=== PATIENT | female | born 1970 | race American Indian/Alaskan Native ===

== ENCOUNTER 2020-05-05 15:28 | Emergency (ER) | payer SELFPAY ==
--- NOTE | 2020-05-05 15:40 | Event Note ---
ED Screening Note ED Screening Note: Patient is a 50-year-old female who comes to the ER complaining of left-sided facial numbness after having an elevated blood pressure today. She took her blood pressure medicine but states that it has remained high. Endorses intermittent chest pain and some shortness of breath with activity. Patient is ambulatory to the ER with no focal neuro deficit. There is no facial weakness or drooping. Pupils equal reactive. No dysphagia. No dysphasia. This initial assessment/diagnostic orders/clinical plan/treatment(s) is/are subject to change based on patients health status, clinical progression and re- assessment by fellow clinical providers in the ED. Further treatment and workup at subsequent clinical providers discretion. Patient/guardian urged not to elope from the ED as their condition may be serious if not clinically assessed and managed. Initial orders include: Hypertension-urgency versus emergency.
--- NOTE | 2020-05-05 16:13 | Cat Scan Report ---
. CT head/brain wo con INDICATION / CLINICAL INFORMATION: 50 years Female; facial numbness. TECHNIQUE: Routine CT head without contrast. All CT scans at this location are performed using CT dos e reduction for ALARA by means of automated exposure control. COMPARISON: None. FINDINGS: BRAIN / INTRACRANIAL CONTENTS: No acute hemorrhage, mass effect, midline shift, hydrocephalus, or acu te, large territorial infarct. No signs of significant atrophy or chronic infarct. No significant whi te matter abnormality seen. CRANIOCERVICAL JUNCTION: No significant abnormality. ORBITS: No significant abnormality of visualized orbits. SINUSES / MASTOIDS: No significant abnormality in the visualized paranasal sinuses or mastoid air lashonda ls. ADDITIONAL FINDINGS: None. IMPRESSION: 1. No focal mass, hemorrhage, hydrocephalus, or acute, large territorial infarct. Signer Name: Howard Pearson MD, III Signed: 05/05/2020 4:09 PM Workstation Name: [id number]
--- NOTE | 2020-05-05 16:26 | XRay Report ---
CHEST 2 VIEWS INDICATION: Chest Pain. COMPARISON: None FINDINGS: Support devices: None. Heart: Within normal limits. Lungs/pleura: No acute air space or interstitial disease. No pneumothorax. Additional findings: None. IMPRESSION: No acute findings. Normal chest x-ray. Signer Name: Nelson Jimenez Jr, MD Signed: 05/05/2020 4:21 PM Workstation Name: [id number]
[2020-05-05 16:27] LABS: Basophils # (Auto) 0.1 K/mm3 (0.0-0.1); Basophils % (Auto) 1.3 % (0.0-1.8); Eosinophils # (Auto) 0.1 K/mm3 (0.0-0.4); Hematocrit 39.9 % (30.3-42.9); Hemoglobin 13.5 gm/dl (10.1-14.3); Lymphocytes # (Auto) 1.8 K/mm3 (1.2-5.4); Lymphocytes % (Auto) 41.6 % (13.4-35.0); Mean Corpuscular HGB Conc 34 % (30-34); Mean Corpuscular Volume 94 fl (79-97); Monocytes # (Auto) 0.6 K/mm3 (0.0-0.8); Monocytes % (Auto) 13.4 % (0.0-7.3); Platelet Count 233 K/mm3 (140-440); Red Blood Count 4.25 M/mm3 (3.65-5.03); Red Cell Distribution Width 14.1 % (13.2-15.2)
[2020-05-05 16:50] LABS: Alanine Aminotransferase 36 units/L (7-56); BUN/Creatinine Ratio 21; Blood Urea Nitrogen 17 mg/dL (7-17); Calcium 8.9 mg/dL (8.4-10.2); Hemolysis Index 0
[2020-05-05] MEDS ORDERED: FAMOTIDINE 20 MG TAB PO ONE (21:09)
[2020-05-05] MEDS ORDERED: ALUM-MAG HYDROXIDE-SIMETHICONE 200-200-20MG/5ML ORAL LIQD 30 ML PO ONE (21:09)
[2020-05-05] MEDS ORDERED: LIDOCAINE VISCOUS 2% 15 ML ORAL LIQD PO ONE (21:09)
[2020-05-05 22:46] VITALS: BP 142/89
--- NOTE | 2020-05-05 22:55 | Emergency Department Report ---
ED General Adult HPI - General Chief complaint: High BP Stated complaint: NUMB/NO BP MOVEMENT Time Seen by Provider: 05/05/20 15:37 Source: patient Mode of arrival: Ambulatory Limitations: No Limitations - History of Present Illness Initial comments: Patient is a 50-year-old -[place] female with a history of hypertension and GERD presents to the ED with complaint of acute onset persistent elevated blood pressure for the last 12 hours despite taking her blood pressure medications. Patient states that she also experienced facial tingling and numbness and chest pressure and was scared and decided come to the ED for evaluation. Patient also states that she has been experiencing persistent diffuse abdominal bloating since the onset of the symptoms 12 hours ago. Patient states that she has not had a bowel movement in 24 hours. Patient de nies chest pain, shortness of breath, fever, chills, nausea and vomiting, diarrhea, dysuria, cough, palpitations, change in vision, headache or syncope. MD Complaint: Elevated BP; Bloated, chest pressure; facial numbness and tingling -: Sudden, hour(s) (12) Location: head, face, chest, abdomen Radiation: non-radiation Severity scale (0 -10): 0 Consistency: constant Improves with: none Worsens with: none Associated Symptoms: denies other symptoms. denies: confusion, chest pain, cough, diaphoresis, fever/chills, headaches, loss of appetite, malaise, nausea/vomiting, rash, seizure, shortness of breath, syncope, weakness, other Treatments Prior to Arrival: none - Related Data Previous Rx's Medication Instructions Recorded Last Taken Type Esomeprazole Magnesium [NexIUM] 40 mg PO QDAY #30 capsule.dr 05/05/20 Unknown Rx Famotidine [Pepcid] 20 mg PO BID #60 tablet 05/05/20 Unknown Rx amLODIPine 5 mg PO DAILY #30 tab 05/05/20 Unknown Rx Allergies Allergy/AdvReac Type Severity Reaction Status Date / Time No Known Allergies Allergy Unverified 05/05/20 15:36 ED Review of Systems ROS: Stated complaint: NUMB/NO BP MOVEMENT Other details as noted in HPI Constitutional: denies: chills, fever, malaise, weakness Eyes: denies: eye pain, eye discharge, vision change ENT: other (Facial tingling and numbness). denies: ear pain, throat pain Respiratory: other (Chest pressure). denies: cough, shortness of breath, wheezing Cardiovascular: denies: chest pain, palpitations, dyspnea on exertion, syncope, paroxysmal nocturnal dyspnea Endocrine: no symptoms reported Gastrointestinal: denies: abdominal pain, nausea, vomiting, diarrhea Genitourinary: denies: urgency, dysuria, discharge Musculoskeletal: denies: back pain, joint swelling, arthralgia Skin: denies: rash, lesions Neurological: denies: headache, weakness, paresthesias Psychiatric: denies: anxiety, depression Hematological/Lymphatic: denies: easy bleeding, easy bruising ED Past Medical Hx - Past Medical History Hx Hypertension: Yes Hx GERD: Yes - Surgical History Additional Surgical History: KNEE - Social History Smoking Status: Never Smoker Substance Use Type: Alcohol - Medications Home Medications: Home Medications Medication Instructions Recorded Confirmed Last Taken Type Esomeprazole Magnesium [NexIUM] 40 mg PO QDAY #30 capsule.dr 05/05/20 Unknown Rx Famotidine [Pepcid] 20 mg PO BID #60 tablet 05/05/20 Unknown Rx amLODIPine 5 mg PO DAILY #30 tab 05/05/20 Unknown Rx ED Physical Exam - General Limitations: No Limitations General appearance: alert, in no apparent distress - Head Head exam: Present: atraumatic, normocephalic, normal inspection - Eye Eye exam: Present: normal appearance, PERRL, EOMI Pupils: Present: normal accommodation - ENT ENT exam: Present: normal exam, normal orophraynx, mucous membranes moist, TM's normal bilaterally, normal external ear exam - Neck Neck exam: Present: normal inspection, full ROM - Respiratory Respiratory exam: Present: normal lung sounds bilaterally. Absent: respiratory distress, wheezes, rales, rhonchi, chest wall tenderness, prolonged expiratory - Cardiovascular Cardiovascular Exam: Present: regular rate, normal rhythm. Absent: systolic murmur, diastolic murmur, rubs, gallop - GI/Abdominal GI/Abdominal exam: Present: soft, normal bowel sounds. Absent: distended, tenderness, guarding, rebound, hyperactive bowel sounds, hypoactive bowel sounds, organomegaly - Extremities Exam Extremities exam: Present: normal inspection, full ROM, normal capillary refill - Back Exam Back exam: Present: normal inspection, full ROM. Absent: tenderness, CVA tenderness (R), CVA tenderness (L), muscle spasm, paraspinal tenderness, vertebral tenderness - Neurological Exam Neurological exam: Present: alert, oriented X3, CN II-XII intact, normal gait, reflexes normal - Psychiatric Psychiatric exam: Present: normal affect, normal mood, anxious - Skin Skin exam: Present: warm, dry, intact, normal color. Absent: rash ED Course Vital Signs 05/05/20 05/05/20 15:38 22:45 Temperature 98.2 F 98.0 F Pulse Rate 88 81 Respiratory 18 16 Rate Blood Pressure 151/92 Blood Pressure 142/89 [Left] O2 Sat by Pulse 96 98 Oximetry ED Medical Decision Making - Lab Data Result diagrams: 05/05/20 15:51 05/05/20 15:51 - EKG Data EKG shows normal: sinus rhythm Rate: normal - EKG Data Interpretation: normal EKG 05/06/20 01:35 EKG shows normal sinus rhythm with a ventricular rate of [address] or T wave abnormalities or pathological Q waves. - Radiology Data Radiology results: report reviewed, image reviewed Head CT scan without contrast showed no acute intracranial abnormalities or hemorrhage. Chest x-ray shows no acute cardiopulmonary abnormalities or pneumonitis - Medical Decision Making This is a 50-year-old -[place] female with a history of hypertension and GERD presents to the ED with complaint of acute onset persistent elevated blood pressure for the last 12 hours despite taking her blood pressure medications. Patient states that she also experienced facial tingling and numbness and chest pressure and was scared and decided come to the ED for evaluation. Patient also states that she has been experiencing persistent diffuse abdominal bloating since the onset of the symptoms 12 hours ago. Patient states that she has not had a bowel movement in 24 hours. Patient states that she take blood pressure medications losartan 100 mg-HCTZ 12.5 mg daily but believes that her blood pr essures not well controlled. Patient states that the blood pressure as measured at home was 180/114. Patient was treated in the ED for GERD and chest x-ray shows no acute cardiopulmonary abnormalities or pneumonitis. The head CT scan without contrast showed no acute intracranial abnormalities or hemorrhage. On reevaluation, patient's bloated abdomen discomfort improved significantly with medications. Vital signs were rechecked and the patient blood pressure improved significantly without treating it in the ED. Patient was discharged home on a new blood pressure medication 5 mg amlodipine to be taken daily to augment the losartan-100 mg the patient is currently taking. Patient was advised to follow- up with her primary care physician in 5 to 7 days for reevaluation or return to the ED immediately if symptoms get worse. - Differential Diagnosis Hypertension; anxiety; GERD, ACS, CVA, TIA Critical care attestation.: If time is entered above; I have spent that time in minutes in the direct care of this critically ill patient, excluding procedure time. ED Disposition Clinical Impression: Uncontrolled stage 2 hypertension, Anxiety as acute reaction to exceptional stress GERD (gastroesophageal reflux disease) Qualifiers: Esophagitis presence: without esophagitis Qualified Code(s): K21.9 - Gastro- esophageal reflux disease without esophagitis Disposition: TO HOME OR SELFCARE Is pt being admited?: No Does the pt Need Aspirin: No Condition: Stable Instructions: Hypertension (ED), Gastroesophageal Reflux Disease, Adult, [id number], Hypertension, Adult, [id number] Additional Instructions: All lab test results were reviewed and are all nonactionable. Therefore take medication with food, drink plenty of fluids and follow-up with your primary ca re in 3 to 5 days for reevaluation. Return to the ED immediately if symptoms get worse. Prescriptions: amLODIPine 5 mg PO DAILY #30 tab Esomeprazole Magnesium [NexIUM] 40 mg PO QDAY #30 capsule. Famotidine [Pepcid] 20 mg PO BID #60 tablet Referrals: [facility] [Provider Group] - 3-5 Days Time of Disposition: 22:53 Print Language: ZAMBIAN
== END 2020-05-05 23:08 | disposition home or self-care (01) ==
LOC: ED 15:28
DX: I10 Essential (primary) hypertension (principal); F41.1 Generalized anxiety disorder; F43.0 Acute stress reaction; K21.9 Gastro-esophageal reflux disease without esophagitis; Z79.899 Other long term (current) drug therapy; Z98.890 Other specified postprocedural states
CPT/HCPCS: 36415; 70450; 71046; 80053; 84484; 85025; 93005

== ENCOUNTER 2020-05-25 12:51 | Emergency (ER) | payer SELFPAY ==
--- NOTE | 2020-05-25 13:16 | Emergency Department Report ---
Blank Doc - Documentation Documentation: This is a 50-year-old female that presents with chest pain and shortness of br eath. 1- This initial assessment/diagnostic orders/clinical plan/ treatment(s) is/are subject to change based on pt's health status, clinical progression and re- assessment by fellow clinical providers in the ED. Further treatment and workup at subsequent clinical provers discretion. Patient/guardians urged not to elope from ED as their condition may be serious if not clinically assessed and manag ed. 2-cardiac work-up
--- NOTE | 2020-05-25 14:00 | XRay Report ---
CHEST 2 VIEWS INDICATION: Chest Pain. COMPARISON: 05/05/2020 FINDINGS: Support devices: None. Heart: Within normal limits. Lungs/pleura: No acute air space or interstitial disease. No pneumothorax. Additional findings: None. IMPRESSION: No acute findings. Signer Name: Nelson Jimenez Jr, MD Signed: 05/25/2020 1:55 PM Workstation Name: [id number]
[2020-05-25 14:44] LABS: Eosinophils # (Auto) 0.2 K/mm3 (0.0-0.4); Eosinophils % (Auto) 5.8 % (0.0-4.3); Hematocrit 39.4 % (30.3-42.9); Hemoglobin 13.5 gm/dl (10.1-14.3); Lymphocytes # (Auto) 1.6 K/mm3 (1.2-5.4); Lymphocytes % (Auto) 38.4 % (13.4-35.0); Mean Corpuscular HGB Conc 34 % (30-34); Mean Corpuscular Volume 93 fl (79-97); Monocytes # (Auto) 0.6 K/mm3 (0.0-0.8); Monocytes % (Auto) 13.9 % (0.0-7.3); Platelet Count 229 K/mm3 (140-440); Red Blood Count 4.23 M/mm3 (3.65-5.03); Red Cell Distribution Width 13.8 % (13.2-15.2)
[2020-05-25 14:55] LABS: Partial Thromboplastin Time 27.4 Sec. (24.2-36.6)
[2020-05-25 15:09] LABS: Alanine Aminotransferase 37 units/L (7-56); Albumin 4.1 g/dL (3.9-5); BUN/Creatinine Ratio 18; Blood Urea Nitrogen 14 mg/dL (7-17); Calcium 8.4 mg/dL (8.4-10.2); Hemolysis Index 1
[2020-05-25 20:53] LABS: Bacteria,Urine 1+ /HPF (Negative); Bilirubin,Urine NEG (Negative); Blood,Urine NEG (Negative); Color,Urine Yellow (Yellow); Mucus,Urine FEW /HPF; Protein,Urine <15 mg/dL mg/dL (Negative); Urobilinogen,Urine < 2.0 mg/dL (<2.0)
[2020-05-25] MEDS ORDERED: ALUM-MAG HYDROXIDE-SIMETHICONE 200-200-20MG/5ML ORAL LIQD 30 ML PO ONE (21:03)
--- NOTE | 2020-05-25 21:27 | Emergency Department Report ---
ED Chest Pain HPI - General Chief Complaint: Chest Pain Stated Complaint: CHEST TIGHTNESS; IRREGULAR HEART RATE Time Seen by Provider: 05/25/20 13:14 Source: patient Mode of arrival: Ambulatory Limitations: No Limitations - History of Present Illness Initial Comments: 50-year-old female with a past medical history of GERD, hypertension, "irregular heartbeat", and gallstones presents to the hospital complaining of mild to moderate abdominal bloating with radiation to the chest. Patient states she has significant pressure and bloating sensation to the upper abdomen that then spreads to pressure in her chest with occasional discomfort to her throat. Patient has made some dietary changes and attempt to losing weight including eating more broccoli and green beans. She has noted increase belching and flatus. Patient had a broccoli and cheese casserole with symptoms started yesterday. She also feels like symptoms are is worse when lying supine. Patient was here in April for similar symptoms and states he improved at the Nexium. She is still taking Nexium but had a recurrence of symptoms today. She also concerned that her gallstones are inflamed. Patient does have some mild shortness of breath during chest pressure bloating episodes she denies nausea, vomiting, fever, melena, hematochezia, recent travel, calf tenderness, leg edema , history of PE/DVT. Patient is continue to take her losartan HCTZ and the Norvasc that was added to her regiment after ED visit in April. She has an appointment scheduled with [facility] tomorrow - Related Data Previous Rx's Medication Instructions Recorded Last Taken Type Esomeprazole Magnesium [NexIUM] 40 mg PO QDAY #30 capsule. 05/05/20 Unknown Rx Famotidine [Pepcid] 20 mg PO BID #60 tablet 05/05/20 Unknown Rx amLODIPine 5 mg PO DAILY #30 tab 05/05/20 Unknown Rx Mag Hydrox/Aluminum Hyd/Simeth 20 ml PO QID PRN #1 bottle 05/25/20 Unknown Rx [Maalox Advanced Suspension] Allergies Allergy/AdvReac Type Severity Reaction Status Date / Time No Known Allergies Allergy Verified 05/25/20 13:12 Heart Score - HEART Score History: Slightly suspicious EKG: Normal Age: 45-65 Risk factors: 1-2 risk factors Troponin: < normal limit HEART Score: 2 ED Review of Systems ROS: Stated complaint: CHEST TIGHTNESS; IRREGULAR HEART RATE Other details as noted in HPI Comment: All other systems reviewed and negative ED Past Medical Hx - Past Medical History Hx Hypertension: Yes Hx GERD: Yes Additional medical history: IRREGULAR heartbeat. Gallstone - Surgical History Additional Surgical History: KNEE - Social History Smoking Status: Never Smoker Substance Use Type: Alcohol - Medications Home Medications: Home Medications Medication Instructions Recorded Confirmed Last Taken Type Esomeprazole Magnesium [NexIUM] 40 mg PO QDAY #30 capsule.dr 05/05/20 Unknown Rx Famotidine [Pepcid] 20 mg PO BID #60 tablet 05/05/20 Unknown Rx amLODIPine 5 mg PO DAILY #30 tab 05/05/20 Unknown Rx Mag Hydrox/Aluminum Hyd/Simeth 20 ml PO QID PRN #1 bottle 05/25/20 Unknown Rx [Maalox Advanced Suspension] ED Physical Exam - General Limitations: No Limitations - Other Other exam information: General: No acute distress Head: Atraumatic Eyes: normal appearance, nonicteric sclera ENT: Moist mucous membranes Neck: Normal appearance, no midline tenderness Chest: Clear to auscultation bilaterally CV: Regular rate and rhythm Abdomen: Soft, normal bowel sounds, nontender, nondistended, no rebound or guarding Back: Normal inspection Extremity: Normal inspection, full range of motion, no calf tenderness or leg edema Neuro: Alert O x 3, no facial asymmetry, speech clear, no gross motor sensory deficit Psych: Appropriate behavior Skin: No rash ED Course Vital Signs 05/25/20 13:15 Temperature 97.9 F Pulse Rate 74 Respiratory 18 Rate Blood Pressure 149/88 O2 Sat by Pulse 97 Oximetry SUNITA score - Sunita Score Age > 65: (0) No Aspirin use within the Past 7 Days: (0) No 3 or more CAD Risk Factors: (0) No 2 or more Angina events in past 24 hrs: (0) No Known CAD with more than 50% Stenosis: (0) No Elevated Cardiac Markers: (0) No ST Deviation Greater than 0.5mm: (0) No SUNITA Score: 0 ED Medical Decision Making - Lab Data Result diagrams: 05/25/20 14:21 05/25/20 14:21 Lab Results 05/25/20 05/25/20 05/25/20 Range/Units 14:21 14:21 14:21 WBC 4.1 L (4.5-11.0) K/mm3 RBC 4.23 (3.65-5.03) M/mm3 Hgb 13.5 (10.1-14.3) gm/dl Hct 39.4 (30.3-42.9) % MCV 93 (79-97) fl MCH 32 (28-32) pg MCHC 34 (30-34) % RDW 13.8 (13.2-15.2) % Plt Count 229 (140-440) K/mm3 Lymph % (Auto) 38.4 H (13.4-35.0) % [place] % (Auto) 13.9 H (0.0-7.3) % Eos % (Auto) 5.8 H (0.0-4.3) % Baso % (Auto) 1.0 (0.0-1.8) % Lymph # (Auto) 1.6 (1.2-5.4) K/mm3 [place] # (Auto) 0.6 (0.0-0.8) K/mm3 Eos # (Auto) 0.2 (0.0-0.4) K/mm3 Baso # (Auto) 0.0 (0.0-0.1) K/mm3 Seg Neutrophils % 40.9 (40.0-70.0) % Seg Neutrophils # 1.7 L (1.8-7.7) K/mm3 PT 13.0 (12.2-14.9) Sec. INR 1.00 (0.87-1.13) APTT 27.4 (24.2-36.6) Sec. D-Dimer (0-234) ng/mlDDU Sodium 136 L (137-145) mmol/L Potassium 3.7 (3.6-5.0) mmol/L Chloride 98.5 (98-107) mmol/L Carbon Dioxide 30 (22-30) mmol/L Anion Gap 11 mmol/L BUN 14 (7-17) mg/dL Creatinine 0.8 (0.6-1.2) mg/dL Estimated GFR > 60 ml/min BUN/Creatinine Ratio 18 % Glucose 144 H (65-100) mg/dL Calcium 8.4 (8.4-10.2) mg/dL Magnesium 1.90 (1.7-2.3) mg/dL Total Bilirubin 0.50 (0.1-1.2) mg/dL AST 25 (5-40) units/L ALT 37 (7-56) units/L Alkaline Phosphatase 83 (35-129) units/L Troponin T < 0.010 (0.00-0.029) ng/mL Total Protein 6.6 (6.3-8.2) g/dL Albumin 4.1 (3.9-5) g/dL Albumin/Globulin Ratio 1.6 % Urine Color (Yellow) Urine Turbidity (Clear) Urine pH (5.0-7.0) Ur Specific [place] (1.003-1.030) Urine Protein (Negative) mg/dL Urine Glucose (UA) (Negative) mg/dL Urine Ketones (Negative) mg/dL Urine Blood (Negative) Urine Nitrite (Negative) Urine Bilirubin (Negative) Urine Urobilinogen (<2.0) mg/dL Ur Leukocyte Esterase (Negative) Urine WBC (Auto) (0.0-6.0) /HPF Urine RBC (Auto) (0.0-6.0) /HPF U Epithel Cells (Auto) (0-13.0) /HPF Urine Bacteria (Auto) (Negative) /HPF Urine Mucus /HPF 05/25/20 05/25/20 05/25/20 Range/Units 14:21 20:41 Unknown WBC (4.5-11.0) K/mm3 RBC (3.65-5.03) M/mm3 Hgb (10.1-14.3) gm/dl Hct (30.3-42.9) % MCV (79-97) fl MCH (28-32) pg MCHC (30-34) % RDW (13.2-15.2) % Plt Count (140-440) K/mm3 Lymph % (Auto) (13.4-35.0) % [place] % (Auto) (0.0-7.3) % Eos % (Auto) (0.0-4.3) % Baso % (Auto) (0.0-1.8) % Lymph # (Auto) (1.2-5.4) K/mm3 [place] # (Auto) (0.0-0.8) K/mm3 Eos # (Auto) (0.0-0.4) K/mm3 Baso # (Auto) (0.0-0.1) K/mm3 Seg Neutrophils % (40.0-70.0) % Seg Neutrophils # (1.8-7.7) K/mm3 PT (12.2-14.9) Sec. INR (0.87-1.13) APTT (24.2-36.6) Sec. D-Dimer 205.83 (0-234) ng/mlDDU Sodium (137-145) mmol/L Potassium (3.6-5.0) mmol/L Chloride (98-107) mmol/L Carbon Dioxide (22-30) mmol/L Anion Gap mmol/L BUN (7-17) mg/dL Creatinine (0.6-1.2) mg/dL Estimated GFR ml/min BUN/Creatinine Ratio % Glucose (65-100) mg/dL Calcium (8.4-10.2) mg/dL Magnesium (1.7-2.3) mg/dL Total Bilirubin (0.1-1.2) mg/dL AST (5-40) units/L ALT (7-56) units/L Alkaline Phosphatase (35-129) units/L Troponin T < 0.010 (0.00-0.029) ng/mL Total Protein (6.3-8.2) g/dL Albumin (3.9-5) g/dL Albumin/Globulin Ratio % Urine Color Yellow (Yellow) Urine Turbidity Clear (Clear) Urine pH 6.0 (5.0-7.0) Ur Specific [place] 1.015 (1.003-1.030) Urine Protein <15 mg/dl (Negative) mg/dL Urine Glucose (UA) Neg (Negative) mg/dL Urine Ketones Neg (Negative) mg/dL Urine Blood Neg (Negative) Urine Nitrite Neg (Negative) Urine Bilirubin Neg (Negative) Urine Urobilinogen < 2.0 (<2.0) mg/dL Ur Leukocyte Esterase Neg (Negative) Urine WBC (Auto) 1.0 (0.0-6.0) /HPF Urine RBC (Auto) 1.0 (0.0-6.0) /HPF U Epithel Cells (Auto) 3.0 (0-13.0) /HPF Urine Bacteria (Auto) 1+ (Negative) /HPF Urine Mucus Few /HPF - EKG Data -: EKG Interpreted by [facility] EKG shows normal: sinus rhythm, ST-T waves (No STEMI, T wave inversions in 3 and aVF) Rate: normal - EKG Data When compared to previous EKG there are: no significant change 05/25/20 21:40 Repeat EKG in ED unchanged patient without pain - Radiology Data Radiology results: report reviewed (Chest x-ray: No acute) - Medical Decision Making Patient presents to the hospital planing of abdominal bloating with radiation to the chest, back, and throat. Symptoms suggestive of excessive gas/dyspepsia. Patient has made several dietary changes that may increase GI gas production. Patient is not having significant burning and continues take her Nexium. EKG normal sinus without acute abnormality or acute changes. Troponin negative x2. Low pretest probability for PE without DVT symptoms and a D-dimer less than 250. Chest x-ray unremarkable. Patient provided Maalox with simethicone in the ED which should be recommended as outpatient as well as GI and PMD follow-up. Critical Care Time: No Critical care attestation.: If time is entered above; I have spent that time in minutes in the direct care of this critically ill patient, excluding procedure time. ED Disposition Clinical Impression: Indigestion Disposition: DC-01 TO HOME OR SELFCARE Is pt being admited?: No Does the pt Need Aspirin: No Condition: Stable Instructions: Indigestion Additional Instructions: Take the medication as prescribed. Follow-up with your doctor or doctor/clinic provided. Return if symptoms worsen as indicated by your discharge instructions. Prescriptions: Mag Hydrox/Aluminum Hyd/Simeth [Maalox Advanced Suspension] 20 ml PO QID PRN #1 bottle PRN Reason: Gas Pain Referrals: RAUDEL HOLGUIN MD [Staff Physician] - 7-10 days (GI doctor ) SAM LONGO [Other] - 24 Hours Time of Disposition: 21:40
[2020-05-25 21:48] VITALS: BP 137/87
== END 2020-05-25 21:45 | disposition home or self-care (01) ==
LOC: ED 12:51
DX: K30 Functional dyspepsia (principal); I10 Essential (primary) hypertension; K21.9 Gastro-esophageal reflux disease without esophagitis; Z79.899 Other long term (current) drug therapy
CPT/HCPCS: 36415; 71046; 80053; 81001; 83735; 84484; 85025; 85379; 85610; 85730; 93005

== ENCOUNTER 2020-06-06 08:23 | Observation (INO) | payer OTHER ==
[2020-06-06] MEDS ORDERED: ASPIRIN 325 MG TAB PO ONE (08:49)
[2020-06-06] MEDS ORDERED: SODIUM CHLORIDE 0.9% 1000 ML 1,000 ML IV ONE (08:49)
--- NOTE | 2020-06-06 08:49 | Event Note ---
ED Screening Note Date of service: 06/06/20 Time: 08:45 ED Screening Note: 50 yr old female presents with substernal chest tightness. Onset yesterday. CP intermittent in nature. Associated symptoms includes SOB, palpitations, an ddiaphoresis (this am). 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 This initial assessment/diagnostic orders/clinical plan/treatment(s) is/are subject to change based on patients health status, clinical progression and re- assessment by fellow clinical providers in the ED. Further treatment and workup at subsequent clinical providers discretion. Patient/guardian urged not to elope from the ED as their condition may be serious if not clinically assessed and managed. Initial orders include: Chest pain order set
--- NOTE | 2020-06-06 09:25 | XRay Report ---
CHEST 2 VIEWS INDICATION: Chest Pain. COMPARISON: 05/25/2020 FINDINGS: Support devices: None. Heart: Within normal limits. Lungs/pleura: No acute air space or interstitial disease. No pneumothorax. Additional findings: None. IMPRESSION: No acute findings. No change since 05/25/2020. Signer Name: Nelson Jimenez Jr, MD Signed: 06/06/2020 9:21 AM Workstation Name: [id number]
[2020-06-06 09:33] LABS: Basophils % (Auto) 0.8 % (0.0-1.8); Eosinophils # (Auto) 0.2 K/mm3 (0.0-0.4); Eosinophils % (Auto) 4.9 % (0.0-4.3); Hematocrit 37.7 % (30.3-42.9); Hemoglobin 13.1 gm/dl (10.1-14.3); Lymphocytes # (Auto) 2.1 K/mm3 (1.2-5.4); Lymphocytes % (Auto) 44.1 % (13.4-35.0); Mean Corpuscular HGB Conc 35 % (30-34); Mean Corpuscular Volume 92 fl (79-97); Monocytes # (Auto) 0.6 K/mm3 (0.0-0.8); Monocytes % (Auto) 12.9 % (0.0-7.3); Platelet Count 251 K/mm3 (140-440); Red Blood Count 4.12 M/mm3 (3.65-5.03); Red Cell Distribution Width 13.9 % (13.2-15.2)
--- NOTE | 2020-06-06 09:43 | Emergency Department Report ---
ED Chest Pain HPI - General Chief Complaint: Chest Pain Stated Complaint: CHEST TIGHTNESS,BACK PAIN/HEART RACING Time Seen by Provider: 06/06/20 08:42 Source: patient Mode of arrival: Ambulatory Limitations: No Limitations - History of Present Illness Initial Comments: Patient is 50 years old female with history of hypertension. Patient presented to the ER for evaluation of chest pain that started last night. Patient described her chest pain as substernal with radiation to the left arm. Patient described her pain as heaviness. Patient stated that she woke up this morning sweating. Patient rated her pain as 6 out of 10 however during the exam patient stated that she does not have pain at this moment. Patient denied any fever or chills. No shortness of breath. MD Complaint: chest pain Onset: during rest Pain Location: substernal Pain Radiation: LUE Severity scale (0 -10): 6 Quality: heaviness Consistency: intermittent - Related Data Previous Rx's Medication Instructions Recorded Last Taken Type Esomeprazole Magnesium [NexIUM] 40 mg PO QDAY #30 capsule.dr 05/05/20 Unknown Rx Famotidine [Pepcid] 20 mg PO BID #60 tablet 05/05/20 Unknown Rx amLODIPine 5 mg PO DAILY #30 tab 05/05/20 Unknown Rx Mag Hydrox/Aluminum Hyd/Simeth 20 ml PO QID PRN #1 bottle 05/25/20 Unknown Rx [Maalox Advanced Suspension] Allergies Allergy/AdvReac Type Severity Reaction Status Date / Time No Known Allergies Allergy Verified 05/25/20 13:12 Heart Score - HEART Score History: Moderately suspicious EKG: Non-specific Age: 45-65 Risk factors: 1-2 risk factors Troponin: < normal limit HEART Score: 4 - Critical Actions Critical Actions: 4-6 pts:12-16.6% risk of adverse cardiac event. Should be admitted ED Review of Systems ROS: Stated complaint: CHEST TIGHTNESS,BACK PAIN/HEART RACING Other details as noted in HPI Comment: All other systems reviewed and negative Constitutional: denies: chills, fever Respiratory: denies: cough, shortness of breath, SOB with exertion, SOB at rest Cardiovascular: chest pain. denies: palpitations Gastrointestinal: denies: abdominal pain, nausea, vomiting Musculoskeletal: denies: back pain Neurological: denies: headache, weakness, numbness, paresthesias, confusion, abnormal gait ED Past Medical Hx - Past Medical History Previous Medical History?: Yes Hx Hypertension: Yes Hx GERD: Yes Additional medical history: IRREGULAR heartbeat. Gallstone - Surgical History Past Surgical History?: Yes Additional Surgical History: KNEE - Social History Smoking Status: Never Smoker Substance Use Type: Alcohol - Medications Home Medications: Home Medications Medication Instructions Recorded Confirmed Last Taken Type Esomeprazole Magnesium [NexIUM] 40 mg PO QDAY #30 capsule.dr 05/05/20 Unknown Rx Famotidine [Pepcid] 20 mg PO BID #60 tablet 05/05/20 Unknown Rx amLODIPine 5 mg PO DAILY #30 tab 05/05/20 Unknown Rx Mag Hydrox/Aluminum Hyd/Simeth 20 ml PO QID PRN #1 bottle 05/25/20 Unknown Rx [Maalox Advanced Suspension] ED Physical Exam - General Limitations: No Limitations General appearance: alert, in no apparent distress - Head Head exam: Present: atraumatic, normocephalic, normal inspection - Eye Eye exam: Present: normal appearance - ENT ENT exam: Present: normal exam, normal orophraynx, mucous membranes moist - Neck Neck exam: Present: normal inspection, full ROM. Absent: tenderness, meningismus, lymphadenopathy, thyromegaly - Respiratory Respiratory exam: Present: normal lung sounds bilaterally - Cardiovascular Cardiovascular Exam: Present: regular rate, normal rhythm, normal heart sounds - GI/Abdominal GI/Abdominal exam: Present: soft, normal bowel sounds. Absent: distended, ten derness, guarding, rebound, rigid, organomegaly, mass, bruit, pulsatile mass - Extremities Exam Extremities exam: Present: normal inspection, full ROM, normal capillary refill. Absent: pedal edema, calf tenderness - Back Exam Back exam: Present: normal inspection, full ROM. Absent: CVA tenderness (R), CVA tenderness (L) - Neurological Exam Neurological exam: Present: alert, oriented X3, CN II-XII intact, normal gait, reflexes normal. Absent: motor sensory deficit - Psychiatric Psychiatric exam: Present: normal mood - Skin Skin exam: Present: warm, intact, normal color ED Course Vital Signs 06/06/20 06/06/20 06/06/20 08:30 14:56 15:01 Temperature 98.5 F Pulse Rate 84 126 H 73 Respiratory 18 24 15 Rate Blood Pressure 134/87 Blood Pressure 148/89 [Right] O2 Sat by Pulse 98 100 Oximetry 06/06/20 06/06/20 06/06/20 15:15 15:31 15:45 Temperature Pulse Rate 68 65 70 Respiratory 13 22 14 Rate Blood Pressure Blood Pressure [Right] O2 Sat by Pulse 97 98 98 Oximetry 06/06/20 06/06/20 06/06/20 16:01 16:15 16:31 Temperature Pulse Rate 91 H 83 71 Respiratory 15 17 16 Rate Blood Pressure Blood Pressure [Right] O2 Sat by Pulse 95 97 98 Oximetry 06/06/20 06/06/20 06/06/20 16:45 17:01 17:15 Temperature Pulse Rate 90 85 72 Respiratory 15 19 15 Rate Blood Pressure Blood Pressure [Right] O2 Sat by Pulse 97 98 100 Oximetry 06/06/20 06/06/20 06/06/20 17:31 17:45 18:01 Temperature Pulse Rate 76 79 71 Respiratory 19 13 22 Rate Blood Pressure Blood Pressure [Right] O2 Sat by Pulse 98 97 98 Oximetry 06/06/20 06/06/20 06/06/20 18:15 18:31 18:45 Temperature Pulse Rate 71 72 80 Respiratory 20 18 7 L Rate Blood Pressure Blood Pressure [Right] O2 Sat by Pulse 97 94 98 Oximetry 06/06/20 06/06/20 06/06/20 19:01 19:15 19:31 Temperature Pulse Rate 86 74 73 Respiratory 18 19 20 Rate Blood Pressure Blood Pressure [Right] O2 Sat by Pulse 100 99 98 Oximetry 06/06/20 06/06/20 06/06/20 19:45 20:01 20:15 Temperature Pulse Rate 73 69 68 Respiratory 22 9 L 19 Rate Blood Pressure Blood Pressure [Right] O2 Sat by Pulse 98 99 98 Oximetry 06/06/20 06/06/20 06/06/20 20:31 20:34 20:45 Temperature Pulse Rate 66 68 68 Respiratory 19 17 Rate Blood Pressure 132/75 132/75 132/75 Blood Pressure [Right] O2 Sat by Pulse 98 99 Oximetry 06/06/20 06/06/20 06/06/20 21:00 21:15 21:31 Temperature Pulse Rate 65 73 70 Respiratory 20 20 23 Rate Blood Pressure 132/74 132/74 132/75 Blood Pressure [Right] O2 Sat by Pulse 100 99 98 Oximetry 02/01/21 02/01/21 02/01/21 21:45 22:00 22:21 Temperature Pulse Rate 75 65 62 Respiratory 17 18 17 Rate Blood Pressure 132/75 133/63 133/63 Blood Pressure [Right] O2 Sat by Pulse 99 91 97 Oximetry 06/06/20 06/06/20 06/06/20 22:31 22:41 22:51 Temperature Pulse Rate 62 66 62 Respiratory 9 L 16 16 Rate Blood Pressure 133/63 133/63 133/63 Blood Pressure [Right] O2 Sat by Pulse 99 99 100 Oximetry 06/06/20 06/06/20 06/06/20 23:00 23:11 23:21 Temperature Pulse Rate 63 65 66 Respiratory 15 18 18 Rate Blood Pressure 136/81 136/81 136/81 Blood Pressure [Right] O2 Sat by Pulse 97 99 100 Oximetry 06/06/20 06/06/20 06/06/20 23:31 23:41 23:55 Temperature 98.4 F Pulse Rate 67 65 77 Respiratory 12 22 18 Rate Blood Pressure 136/81 136/81 130/80 Blood Pressure [Right] O2 Sat by Pulse 99 97 94 Oximetry SUNITA score - Sunita Score Age > 65: (0) No Aspirin use within the Past 7 Days: (0) No 3 or more CAD Risk Factors: (0) No 2 or more Angina events in past 24 hrs: (0) No Known CAD with more than 50% Stenosis: (0) No Elevated Cardiac Markers: (0) No ST Deviation Greater than 0.5mm: (0) No SUNITA Score: 0 ED Medical Decision Making - Lab Data Result diagrams: 06/06/20 09:05 06/06/20 09:05 - EKG Data -: EKG Interpreted by Mi EKG shows normal: sinus rhythm Rate: normal - EKG Data Interpretation: no acute changes - Radiology Data Radiology results: report reviewed - Medical Decision Making Patient is 50 years old female with history of hypertension. Patient presented to the ER for evaluation of chest pain that started last night. Patient described her chest pain as substernal with radiation to the left arm. Patient described her pain as heaviness. Patient stated that she woke up this morning sweating. Patient rated her pain as 6 out of 10 however during the exam patient stated that she does not have pain at this moment. Patient denied any fever or chills. No shortness of breath. EKG is unremarkable. Labs reviewed and is negative. Chest x-ray is unremarkable. Patient received aspirin. Patient chest pain is typical. Patient will be admitted for further management. I discussed the patient with Dr. Baez and advised to admit the patient to Dr. Ritchie. Critical care attestation.: If time is entered above; I have spent that time in minutes in the direct care of this critically ill patient, excluding procedure time. ED Disposition Clinical Impression: Chest pain Disposition: OP ADMIT IP TO THIS HOSP Is pt being admited?: Yes Condition: Stable
[2020-06-06 09:58] LABS: Alanine Aminotransferase 29 units/L (7-56); Albumin 4.1 g/dL (3.9-5); BUN/Creatinine Ratio 19; Blood Urea Nitrogen 15 mg/dL (7-17); Calcium 8.7 mg/dL (8.4-10.2); Hemolysis Index 3
[2020-06-06 12:45] LABS: Amphetamine Screen,Urine Negative; Benzodiazepines Screen,Urine Negative; Cannabinoid Screen,Urine Negative; Cocaine Screen,Urine Negative; Methadone Screen,Urine Negative; Opiate Screen,Urine Negative
--- NOTE | 2020-06-06 15:55 | History and Physical Report ---
History of Present Illness Date of examination: 06/06/20 Date of admission: 06/06/20 11:42 Chief complaint: Chest pain since last night History of present illness: Comes in for chest pain since last night. Chest pain is substernal with radiation to the left arm. Patient woke up this morning and because the chest pain was persistent patient came to the emergency room. Patient describes the chest pain as heaviness. Chest pain is about 6 on a scale of 1-10. Radiation to the left arm present. No diaphoresis no shortness of breath. No palpitations. No exacerbating or relieving factors. Heart Score - HEART Score History: Moderately suspicious EKG: Non-specific Age: 45-65 Risk factors: 1-2 risk factors Troponin: < normal limit HEART Score: 4 - Critical Actions Critical Actions: 4-6 pts:12-16.6% risk of adverse cardiac event. Should be admitted - Past Medical History Previous Medical History?: Yes --Hypertension: Yes --GERD: Yes Additional medical history: IRREGULAR heartbeat. Gallstone - Surgical History Past Surgical History?: Yes Additional Surgical History: KNEE Family history Htn - Social History Smoking Status: Never Smoker Substance Use Type: Alcohol - Medications Home Medications: Home Medications Medication Instructions Recorded Confirmed Last Taken Type Esomeprazole Magnesium [NexIUM] 40 mg PO QDAY #30 capsule.dr 05/05/20 Unknown Rx Famotidine [Pepcid] 20 mg PO BID #60 tablet 05/05/20 Unknown Rx amLODIPine 5 mg PO DAILY #30 tab 05/05/20 Unknown Rx Mag Hydrox/Aluminum Hyd/Simeth 20 ml PO QID PRN #1 bottle 05/25/20 Unknown Rx [Maalox Advanced Suspension] Review of Systems ROS: Stated complaint: CHEST TIGHTNESS,BACK PAIN/HEART RACING Other details as noted in HPI Comment: All other systems reviewed and negative Constitutional: denies: chills, fever Respiratory: denies: cough, shortness of breath, SOB with exertion, SOB at rest Cardiovascular: chest pain. denies: palpitations Gastrointestinal: denies: abdominal pain, nausea, vomiting Musculoskeletal: denies: back pain Neurological: denies: headache, weakness, numbness, paresthesias, confusion, abnormal gait Medications and Allergies Allergies Allergy/AdvReac Type Severity Reaction Status Date / Time No Known Allergies Allergy Verified 05/25/20 13:12 Home Medications Medication Instructions Recorded Confirmed Last Taken Type Esomeprazole Magnesium [NexIUM] 40 mg PO QDAY #30 capsule. 05/05/20 Unknown Rx Famotidine [Pepcid] 20 mg PO BID #60 tablet 05/05/20 Unknown Rx amLODIPine 5 mg PO DAILY #30 tab 05/05/20 Unknown Rx Mag Hydrox/Aluminum Hyd/Simeth 20 ml PO QID PRN #1 bottle 05/25/20 Unknown Rx [Maalox Advanced Suspension] Exam - Constitutional Vitals: Temp Pulse Resp BP Pulse Ox 98.5 F 73 15 134/87 100 06/06/20 08:30 06/06/20 15:01 06/06/20 15:01 06/06/20 14:56 06/06/20 15:01 General appearance: Present: no acute distress, well-nourished - EENT Eyes: Present: PERRL ENT: hearing intact, clear oral mucosa - Neck Neck: Present: supple, normal ROM - Respiratory Respiratory effort: normal Respiratory: bilateral: CTA - Cardiovascular Heart rate: 76 Rhythm: regular Heart Sounds: Present: S1 & S2. Absent: rub, click - Extremities Extremities: pulses symmetrical, No edema Peripheral Pulses: within normal limits - Abdominal General gastrointestinal: Present: soft, non-tender, non-distended, normal bowel sounds Female genitourinary: Present: normal - Integumentary Integumentary: Present: clear, warm, dry - Musculoskeletal Musculoskeletal: gait normal, strength equal bilaterally - Psychiatric Psychiatric: appropriate mood/affect, intact judgment & insight - Neurologic Neurologic: CNII-XII intact, moves all extremities HEART Score - HEART Score EKG: Non-specific Age: 45-65 Risk factors: 1-2 risk factors Troponin: Troponin T < 0.010 ng/mL (0.00-0.029) 06/06/20 11:35 Troponin: < normal limit - Critical Actions Critical Actions: 4-6 pts:12-16.6% risk of adverse cardiac event. Should be admitted Results - Labs CBC & Chem 7: 06/06/20 09:05 06/06/20 09:05 Labs: Laboratory Last Values WBC 4.7 K/mm3 (4.5-11.0) 06/06/20 09:05 RBC 4.12 M/mm3 (3.65-5.03) 06/06/20 09:05 Hgb 13.1 gm/dl (10.1-14.3) 06/06/20 09:05 Hct 37.7 % (30.3-42.9) 06/06/20 09:05 MCV 92 fl (79-97) 06/06/20 09:05 MCH 32 pg (28-32) 06/06/20 09:05 MCHC 35 % (30-34) H 06/06/20 09:05 RDW 13.9 % (13.2-15.2) 06/06/20 09:05 Plt Count 251 K/mm3 (140-440) 06/06/20 09:05 Lymph % (Auto) 44.1 % (13.4-35.0) H 06/06/20 09:05 [place] % (Auto) 12.9 % (0.0-7.3) H 06/06/20 09:05 Eos % (Auto) 4.9 % (0.0-4.3) H 06/06/20 09:05 Baso % (Auto) 0.8 % (0.0-1.8) 06/06/20 09:05 Lymph # (Auto) 2.1 K/mm3 (1.2-5.4) 06/06/20 09:05 [place] # (Auto) 0.6 K/mm3 (0.0-0.8) 06/06/20 09:05 Eos # (Auto) 0.2 K/mm3 (0.0-0.4) 06/06/20 09:05 Baso # (Auto) 0.0 K/mm3 (0.0-0.1) 06/06/20 09:05 Seg Neutrophils % 37.3 % (40.0-70.0) L 06/06/20 09:05 Seg Neutrophils # 1.7 K/mm3 (1.8-7.7) L 06/06/20 09:05 D-Dimer 228.57 ng/mlDDU (0-234) 06/06/20 10:26 Sodium 138 mmol/L (137-145) 06/06/20 09:05 Potassium 3.6 mmol/L (3.6-5.0) 06/06/20 09:05 Chloride 100.7 mmol/L (98-107) 06/06/20 09:05 Carbon Dioxide 29 mmol/L (22-30) 06/06/20 09:05 Anion Gap 12 mmol/L 06/06/20 09:05 BUN 15 mg/dL (7-17) 06/06/20 09:05 Creatinine 0.8 mg/dL (0.6-1.2) 06/06/20 09:05 Estimated GFR > 60 ml/min 06/06/20 09:05 BUN/Creatinine Ratio 19 % 06/06/20 09:05 Glucose 133 mg/dL (65-100) H 06/06/20 09:05 Calcium 8.7 mg/dL (8.4-10.2) 06/06/20 09:05 Total Bilirubin 0.70 mg/dL (0.1-1.2) 06/06/20 09:05 AST 23 units/L (5-40) 06/06/20 09:05 ALT 29 units/L (7-56) 06/06/20 09:05 Alkaline Phosphatase 92 units/L (35-129) 06/06/20 09:05 Troponin T < 0.010 ng/mL (0.00-0.029) 06/06/20 11:35 Total Protein 6.7 g/dL (6.3-8.2) 06/06/20 09:05 Albumin 4.1 g/dL (3.9-5) 06/06/20 09:05 Albumin/Globulin Ratio 1.6 % 06/06/20 09:05 TSH 1.450 mlU/mL (0.270-4.200) 06/06/20 09:05 Urine Opiates Screen Negative 06/06/20 Unknown Urine Methadone Screen Negative 06/06/20 Unknown Ur Barbiturates Screen Negative 06/06/20 Unknown Ur Phencyclidine Scrn Negative 06/06/20 Unknown Ur Amphetamines Screen Negative 06/06/20 Unknown U Benzodiazepines Scrn Negative 06/06/20 Unknown Urine Cocaine Screen Negative 06/06/20 Unknown U Marijuana (THC) Screen Negative 06/06/20 Unknown Drugs of Abuse Note Disclamer 06/06/20 Unknown Cardiac Enzymes 06/06/20 06/06/20 Range/Units 11:35 16:10 Troponin T < 0.010 < 0.010 (0.00-0.029) ng/mL - Imaging and Cardiology EKG: report reviewed (Sinus rhythm no acute ST-T wave changes) Chest x-ray: report reviewed (No acute findings) Assessment and Plan Advance Directives: Yes (Full code) VTE prophylaxis?: Chemical Plan of care discussed with patient/family: Yes - Patient Problems (1) ACS (acute coronary syndrome) Current Visit: Yes Status: Acute Plan to address problem: Chest pain work up Serial troponins and Stress test in am (2) HTN (hypertension) Current Visit: Yes Status: Chronic Qualifiers: Hypertension type: essential hypertension Qualified Code(s): I10 - Essential (primary) hypertension Plan to address problem: Cont antihypertensives (3) GERD (gastroesophageal reflux disease) Current Visit: Yes Status: Acute (4) DVT prophylaxis Current Visit: Yes Status: Acute Plan to address problem: on Lovenox and GI prophylaxis
[2020-06-06] MEDS ORDERED: NON-FORMULARY EACH (Esomeprazole Magnesium [Nexium] 40 MG Capsule.Dr) PO SCH (19:15)
[2020-06-06] MEDS: amLODIPine 5 MG TAB PO SCH (20:34)
[2020-06-07] MEDS ORDERED: traMADol 50 MG TAB PO PRN (00:45)
[2020-06-07] MEDS ORDERED: traZODone 50 MG TAB PO PRN (00:46)
[2020-06-07] MEDS ORDERED: PANTOPRAZOLE 40 MG TAB PO SCH (10:00)
[2020-06-07] MEDS ORDERED: MORPHINE 4 MG/1 ML INJ IV PRN (10:06)
[2020-06-07] MEDS ORDERED: ACETAMINOPHEN 325 MG TAB PO PRN (10:06)
[2020-06-07] MEDS ORDERED: MORPHINE 2 MG/1 ML INJ IV PRN (10:30)
[2020-06-07 11:02] LABS: Hematocrit 35.9 % (30.3-42.9); Hemoglobin 12.6 gm/dl (10.1-14.3); Mean Corpuscular HGB Conc 35 % (30-34); Mean Corpuscular Volume 92 fl (79-97); Platelet Count 226 K/mm3 (140-440); Red Blood Count 3.92 M/mm3 (3.65-5.03); Red Cell Distribution Width 14.2 % (13.2-15.2)
[2020-06-07 11:17] LABS: Creatine Kinase MB 2.2 ng/mL (0.0-4.0)
[2020-06-07 11:19] LABS: BUN/Creatinine Ratio 18; Blood Urea Nitrogen 14 mg/dL (7-17); Calcium 8.5 mg/dL (8.4-10.2); Hemolysis Index 8
[2020-06-07 12:06] LABS: Platelet Estimate Consistent w Auto; RBC Morphology Normal; Total Cells Counted 100
[2020-06-07] MEDS ORDERED: chlorproMAZINE 25 MG TAB PO PRN (13:17)
--- NOTE | 2020-06-07 13:18 | Progress Note ---
Assessment and Plan Assessment and plan: Comes in for chest pain since last night. Chest pain is substernal with radiation to the left arm. Patient woke up this morning and because the chest pain was persistent patient came to the emergency room. Patient describes the chest pain as heaviness. Chest pain is about 6 on a scale of 1-10. Radiation to the left arm present. No diaphoresis no shortness of breath. No palpitations. No exacerbating or relieving factors. Hospitalist Physical - Constitutional Vitals: Temp Pulse Resp BP Pulse Ox 98.0 F 64 16 128/57 95 06/07/20 09:08 06/07/20 09:08 06/07/20 09:08 06/07/20 09:08 06/07/20 09:08 General appearance: Present: no acute distress, well-nourished HEART Score - HEART Score EKG: Non-specific Age: 45-65 Risk factors: 1-2 risk factors Troponin: Troponin T < 0.010 ng/mL (0.00-0.029) 06/06/20 16:10 Troponin: < normal limit - Critical Actions Critical Actions: 4-6 pts:12-16.6% risk of adverse cardiac event. Should be admitted Results - Labs CBC & Chem 7: 06/07/20 10:15 06/07/20 10:15 Labs: Laboratory Last Values WBC 4.3 K/mm3 (4.5-11.0) L 06/07/20 10:15 RBC 3.92 M/mm3 (3.65-5.03) 06/07/20 10:15 Hgb 12.6 gm/dl (10.1-14.3) 06/07/20 10:15 Hct 35.9 % (30.3-42.9) 06/07/20 10:15 MCV 92 fl (79-97) 06/07/20 10:15 MCH 32 pg (28-32) 06/07/20 10:15 MCHC 35 % (30-34) H 06/07/20 10:15 RDW 14.2 % (13.2-15.2) 06/07/20 10:15 Plt Count 226 K/mm3 (140-440) 06/07/20 10:15 Lymph % (Auto) 44.1 % (13.4-35.0) H 06/06/20 09:05 [place] % (Auto) 12.9 % (0.0-7.3) H 06/06/20 09:05 Eos % (Auto) 4.9 % (0.0-4.3) H 06/06/20 09:05 Baso % (Auto) 0.8 % (0.0-1.8) 06/06/20 09:05 Lymph # (Auto) 2.1 K/mm3 (1.2-5.4) 06/06/20 09:05 [place] # (Auto) 0.6 K/mm3 (0.0-0.8) 06/06/20 09:05 Eos # (Auto) 0.2 K/mm3 (0.0-0.4) 06/06/20 09:05 Baso # (Auto) 0.0 K/mm3 (0.0-0.1) 06/06/20 09:05 Add Manual Diff Complete 06/07/20 10:15 Total Counted 100 06/07/20 10:15 Seg Neutrophils % Pe Manager 06/07/20 10:15 Seg Neuts % (Manual) 43.0 % (40.0-70.0) 06/07/20 10:15 Lymphocytes % (Manual) 41.0 % (13.4-35.0) H 06/07/20 10:15 Monocytes % (Manual) 4.0 % (0.0-7.3) 06/07/20 10:15 Eosinophils % (Manual) 12.0 % (0.0-4.3) H 06/07/20 10:15 Nucleated RBC % Not Reportable 06/07/20 10:15 Seg Neutrophils # 1.7 K/mm3 (1.8-7.7) L 06/06/20 09:05 Seg Neutrophils # Man 1.8 K/mm3 (1.8-7.7) 06/07/20 10:15 Band Neutrophils # 0.0 K/mm3 06/07/20 10:15 Lymphocytes # (Manual) 1.8 K/mm3 (1.2-5.4) 06/07/20 10:15 Abs React Lymphs (Man) 0.0 K/mm3 06/07/20 10:15 Monocytes # (Manual) 0.2 K/mm3 (0.0-0.8) 06/07/20 10:15 Eosinophils # (Manual) 0.5 K/mm3 (0.0-0.4) H 06/07/20 10:15 Basophils # (Manual) 0.0 K/mm3 (0.0-0.1) 06/07/20 10:15 Metamyelocytes # 0.0 K/mm3 06/07/20 10:15 Myelocytes # 0.0 K/mm3 06/07/20 10:15 Promyelocytes # 0.0 K/mm3 06/07/20 10:15 Blast Cells # 0.0 K/mm3 06/07/20 10:15 WBC Morphology Not Reportable 06/07/20 10:15 Hypersegmented Neuts Not Reportable 06/07/20 10:15 Hyposegmented Neuts Not Reportable 06/07/20 10:15 Hypogranular Neuts Not Reportable 06/07/20 10:15 Smudge Cells Not Reportable 06/07/20 10:15 Toxic Granulation Not Reportable 06/07/20 10:15 Toxic Vacuolation Not Reportable 06/07/20 10:15 Dohle Bodies Not Reportable 06/07/20 10:15 Pelger-Huet Anomaly Not Reportable 06/07/20 10:15 Aureliano Rods Not Reportable 06/07/20 10:15 Platelet Estimate Consistent w auto 06/07/20 10:15 Clumped Platelets Not Reportable 06/07/20 10:15 Plt Clumps, EDTA Not Reportable 06/07/20 10:15 Large Platelets Not Reportable 06/07/20 10:15 Giant Platelets Not Reportable 06/07/20 10:15 Platelet Satelliting Not Reportable 06/07/20 10:15 Plt Morphology Comment Not Reportable 06/07/20 10:15 RBC Morphology Normal 06/07/20 10:15 Dimorphic RBCs Not Reportable 06/07/20 10:15 Polychromasia Not Reportable 06/07/20 10:15 Hypochromasia Not Reportable 06/07/20 10:15 Poikilocytosis Not Reportable 06/07/20 10:15 Anisocytosis Not Reportable 06/07/20 10:15 Microcytosis Not Reportable 06/07/20 10:15 Macrocytosis Not Reportable 06/07/20 10:15 Spherocytes Not Reportable 06/07/20 10:15 Pappenheimer Bodies Not Reportable 06/07/20 10:15 Sickle Cells Not Reportable 06/07/20 10:15 Target Cells Not Reportable 06/07/20 10:15 Tear Drop Cells Not Reportable 06/07/20 10:15 Ovalocytes Not Reportable 06/07/20 10:15 Helmet Cells Not Reportable 06/07/20 10:15 [place] Bodies Not Reportable 06/07/20 10:15 [place] Rings Not Reportable 06/07/20 10:15 [place] Cells Not Reportable 06/07/20 10:15 Bite Cells Not Reportable 06/07/20 10:15 Crenated Cell Not Reportable 06/07/20 10:15 Elliptocytes Not Reportable 06/07/20 10:15 Acanthocytes (Spur) Not Reportable 06/07/20 10:15 Rouleaux Not Reportable 06/07/20 10:15 Hemoglobin C Crystals Not Reportable 06/07/20 10:15 Schistocytes Not Reportable 06/07/20 10:15 Malaria parasites Not Reportable 06/07/20 10:15 Sg Bodies Not Reportable 06/07/20 10:15 Hem Pathologist Commnt No 06/07/20 10:15 D-Dimer 228.57 ng/mlDDU (0-234) 06/06/20 10:26 Sodium 139 mmol/L (137-145) 06/07/20 10:15 Potassium 3.9 mmol/L (3.6-5.0) 06/07/20 10:15 Chloride 104.4 mmol/L (98-107) 06/07/20 10:15 Carbon Dioxide 26 mmol/L (22-30) 06/07/20 10:15 Anion Gap 13 mmol/L 06/07/20 10:15 BUN 14 mg/dL (7-17) 06/07/20 10:15 Creatinine 0.8 mg/dL (0.6-1.2) 06/07/20 10:15 Estimated GFR > 60 ml/min 06/07/20 10:15 BUN/Creatinine Ratio 18 % 06/07/20 10:15 Glucose 121 mg/dL (65-100) H 06/07/20 10:15 Calcium 8.5 mg/dL (8.4-10.2) 06/07/20 10:15 Total Bilirubin 0.70 mg/dL (0.1-1.2) 06/06/20 09:05 AST 23 units/L (5-40) 06/06/20 09:05 ALT 29 units/L (7-56) 06/06/20 09:05 Alkaline Phosphatase 92 units/L (35-129) 06/06/20 09:05 Total Creatine Kinase 210 units/L (30-135) H 06/07/20 10:15 CK-MB (CK-2) 2.2 ng/mL (0.0-4.0) 06/07/20 10:15 CK-MB (CK-2) Rel Index 1.0 (0-4) 06/07/20 10:15 Troponin T < 0.010 ng/mL (0.00-0.029) 06/06/20 16:10 Total Protein 6.7 g/dL (6.3-8.2) 06/06/20 09:05 Albumin 4.1 g/dL (3.9-5) 06/06/20 09:05 Albumin/Globulin Ratio 1.6 % 06/06/20 09:05 TSH 1.450 mlU/mL (0.270-4.200) 06/06/20 09:05 Urine Opiates Screen Negative 06/06/20 Unknown Urine Methadone Screen Negative 06/06/20 Unknown Ur Barbiturates Screen Negative 06/06/20 Unknown Ur Phencyclidine Scrn Negative 06/06/20 Unknown Ur Amphetamines Screen Negative 06/06/20 Unknown U Benzodiazepines Scrn Negative 06/06/20 Unknown Urine Cocaine Screen Negative 06/06/20 Unknown U Marijuana (THC) Screen Negative 06/06/20 Unknown Drugs of Abuse Note Disclamer 06/06/20 Unknown [place]/IV: Voiding Method Toilet Active Medications - Current Medications Current Medications: Generic Name Dose Route Start Last Admin Trade Name Freq PRN Reason Stop Dose Admin Acetaminophen 650 mg 06/07/20 10:06 Acetaminophen 325 Mg Tab PO Q6H PRN Pain, Mild (1-3) Amlodipine Besylate 5 mg 06/06/20 20:00 06/06/20 20:34 Amlodipine 5 Mg Tab PO 5 mg DAILY ROSALIND Administration Aspirin 81 mg 06/08/20 10:00 Aspirin 81 Mg Tab Chew PO QDAY ROSALIND Atorvastatin Calcium 40 mg 06/07/20 10:30 Atorvastatin 40 Mg Tab PO DAILY ROSALIND Chlorpromazine HCl 25 mg 06/07/20 13:17 Chlorpromazine 25 Mg Tab PO Q4H PRN Hiccups Morphine Sulfate 2 mg 06/07/20 10:30 Morphine 2 Mg/1 Ml Inj IV Q5MIN PRN Chest Pain Pantoprazole Sodium 40 mg 06/07/20 10:00 Pantoprazole 40 Mg Tab PO DAILY ROSALIND Sodium Chloride 10 ml 06/07/20 10:30 Sodium Chloride 0.9% 10 Ml Flush Syringe IV PRN PRN LINE FLUSH Tramadol HCl 50 mg 06/07/20 00:45 06/07/20 00:56 Tramadol 50 Mg Tab PO 50 mg Q6H PRN Administration Pain, Moderate (4-6) Trazodone HCl 50 mg 06/07/20 00:46 06/07/20 00:56 Trazodone 50 Mg Tab PO 50 mg QHS PRN Administration insomnia
--- NOTE | 2020-06-07 13:19 | Consultation ---
History of Present Illness Consult date: 06/07/20 Requesting physician: ALEXEI GUERRA Consult reason: chest pain History of present illness: 50 y/o female with past medical hx of HTN, prediabetes, former tobacco use (quit 1 year ago). She reports she was recently seen by [facility] 8 months ago with complaints of palpitations and had a 45 day event monitor, result pending per patient. She presented with CP for several days prior to arrival. CP is described as R sided, non radiating, and non reproducible. No alleviating or aggravating factors. Pt denies any N/V, SOB, diaphoresis, dizziness or syncope. No current palpitations. Pt has been scheduled for MPI stress testing today by primary team. Past History Past Medical History: hypertension Social history: smoking (Former) Medications and Allergies Allergies Allergy/AdvReac Type Severity Reaction Status Date / Time No Known Allergies Allergy Verified 05/25/20 13:12 Home Medications Medication Instructions Recorded Confirmed Last Taken Type Esomeprazole Magnesium [NexIUM] 40 mg PO QDAY #30 capsule.dr 05/05/20 Unknown Rx Famotidine [Pepcid] 20 mg PO BID #60 tablet 05/05/20 Unknown Rx amLODIPine 5 mg PO DAILY #30 tab 05/05/20 Unknown Rx Mag Hydrox/Aluminum Hyd/Simeth 20 ml PO QID PRN #1 bottle 05/25/20 Unknown Rx [Maalox Advanced Suspension] Active Meds: Active Medications Acetaminophen (Acetaminophen 325 Mg Tab) 650 mg PO Q6H PRN PRN Reason: Pain, Mild (1-3) Amlodipine Besylate (Amlodipine 5 Mg Tab) 5 mg PO DAILY [facility] Last Admin: 06/06/20 20:34 Dose: 5 mg Documented by: Aspirin (Aspirin 81 Mg Tab Chew) 81 mg PO QDAY ROSALIND Atorvastatin Calcium (Atorvastatin 40 Mg Tab) 40 mg PO DAILY [facility] Morphine Sulfate (Morphine 2 Mg/1 Ml Inj) 2 mg IV Q5MIN PRN PRN Reason: Chest Pain Pantoprazole Sodium (Pantoprazole 40 Mg Tab) 40 mg PO DAILY [facility] Sodium Chloride (Sodium Chloride 0.9% 10 Ml Flush Syringe) 10 ml IV PRN PRN PRN Reason: LINE FLUSH Tramadol HCl (Tramadol 50 Mg Tab) 50 mg PO Q6H PRN PRN Reason: Pain, Moderate (4-6) Last Admin: 06/07/20 00:56 Dose: 50 mg Documented by: Trazodone HCl (Trazodone 50 Mg Tab) 50 mg PO QHS PRN PRN Reason: insomnia Last Admin: 06/07/20 00:56 Dose: 50 mg Documented by: Review of Systems Constitutional: no weight loss, no weight gain, no fever, no chills, no sweats Ears, nose, mouth and throat: no ear pain, no nose pain, no nasal congestion, no nasal discharge, no sinus pressure, no sinus pain Cardiovascular: chest pain, no palpitations, no syncope, no lightheadedness, no shortness of breath, no dyspnea on exertion Respiratory: no cough, no shortness of breath, no dyspnea on exertion, no congestion, no wheezing, no pain, no pain on inspiration Gastrointestinal: no abdominal pain, no nausea, no vomiting, no diarrhea, no constipation, no change in bowel habits Genitourinary Female: no pelvic pain, no flank pain, no dysuria, no urinary frequency, no urgency Musculoskeletal: no neck stiffness, no neck pain, no shooting arm pain, no arm numbness/tingling, no low back pain, no shooting leg pain, no leg numbness/tingling, no redness of joints Integumentary: no rash, no pruritis, no redness, no sores, no wounds Neurological: no head injury, no weakness, no parathesias, no numbness, no tingling, no seizures, no syncope Psychiatric: no anxiety Endocrine: no cold intolerance, no heat intolerance, no polyphagia, no excessive thirst, no polydipsia, no polyuria Hematologic/Lymphatic: no easy bruising, no easy bleeding Allergic/Immunologic: no urticaria Physical Examination Vital Signs Temp Pulse Resp BP Pulse Ox 98.5 F 84 18 148/89 98 06/06/20 08:30 06/06/20 08:30 06/06/20 08:30 06/06/20 08:30 06/06/20 08:30 General appearance: no acute distress HEENT: Positive: PERRL, Normocephaly, Mucus Membranes Moist Neck: Positive: neck supple, trachea midline Cardiac: Positive: Reg Rate and Rhythm, S1/S2 Lungs: Positive: Normal Exam, clear to auscultation, Normal Breath Sounds, No Wheeze, Rales, Rhonchi Neuro: Positive: Grossly Intact, Cranial Nerve 2-12 Intact, Motor Function Intact, Coordination Normal, Sensory Function Intact, DTR Norm/Equal U/L Extrem Abdomen: Positive: Unremarkable, Soft, Active Bowel Sounds Skin: Positive: Clear Musculoskeletal: No Fluid Collection, No Pain, Normal Range of Motion Extremities: Present: normal, upper extr. pulses, lower extr. pulses Results 06/07/20 10:15 06/07/20 10:15 Cardiac Enzymes 06/07/20 Range/Units 10:15 CK-MB (CK-2) 2.2 (0.0-4.0) ng/mL CBC 06/07/20 Range/Units 10:15 WBC 4.3 L (4.5-11.0) K/mm3 RBC 3.92 (3.65-5.03) M/mm3 Hgb 12.6 (10.1-14.3) gm/dl Hct 35.9 (30.3-42.9) % Plt Count 226 (140-440) K/mm3 Comprehensive Metabolic Panel 06/07/20 Range/Units 10:15 Sodium 139 (137-145) mmol/L Potassium 3.9 (3.6-5.0) mmol/L Chloride 104.4 (98-107) mmol/L Carbon Dioxide 26 (22-30) mmol/L BUN 14 (7-17) mg/dL Creatinine 0.8 (0.6-1.2) mg/dL Glucose 121 H (65-100) mg/dL Calcium 8.5 (8.4-10.2) mg/dL - Imaging and Cardiology EKG: report reviewed, image reviewed EKG interpretations - Telemetry EKG Rhythm: Sinus Rhythm - EKG Sinus rhythms and dysrhythmias: sinus rhythm Assessment and Plan Pt underwent Treadmill MPI Stress Testing today- Pt walked 8 minutes. Good exercise tolerance. No symptoms. Nuclear imaging was negative for ischemia with normal LV function. CP currently resolved. AMI ruled out, D dimer WNL. Currently stable cardiac status. Pt may discharge from cardiology standpoint. At discharge, recommend PO lopressor 25mg BID given hx of palpitations and reduce home norvasc to 2.5mg qd. Recommend pt f/u with [facility] within 1-2 weeks. Pt was seen in conjunction with Dr. Cantor, who agrees with the assessment and plan of care. - Patient Problems (1) Chest pain Current Visit: Yes Status: Acute (2) HTN (hypertension) Current Visit: Yes Status: Chronic Qualifiers: Hypertension type: essential hypertension Qualified Code(s): I10 - Essential (primary) hypertension (3) Prediabetes Current Visit: Yes Status: Chronic (4) History of palpitations Current Visit: Yes Status: Chronic
[2020-06-07] MEDS: amLODIPine 5 MG TAB PO SCH (13:21)
[2020-06-07 17:06] LABS: Creatine Kinase MB 2.2 ng/mL (0.0-4.0)
--- NOTE | 2020-06-07 17:34 | Discharge Summary ---
Providers - Providers Date of Admission: 06/06/20 11:42 Date of discharge: 06/07/20 Attending physician: RADHA SKINNER 06/07/20 Consult to Cardiac Rehabilitation [CONS] Routine Reason For Exam: Phase I 06/07/20 10:06 Consult to Cardiology [CONS] Routine Consulting Provider: DEBRA SORENSON Reason For Exam: chest pain Hospitalization Condition: Stable Hospital course: History of present illness: Comes in for chest pain since last night. Chest pain is substernal with radiation to the left arm. Patient woke up this morning and because the chest pain was persistent patient came to the emergency room. Patient describes the chest pain as heaviness. Chest pain is about 6 on a scale of 1-10. Radiation to the left arm present. No diaphoresis no shortness of breath. No palpitations. No exacerbating or relieving factors. Assessment and Plan Advance Directives: Yes (Full code) VTE prophylaxis?: Chemical Plan of care discussed with patient/family: Yes - Patient Problems (1) ACS (acute coronary syndrome) Current Visit: Yes Status: Acute Plan to address problem: Stress test was negative (2) HTN (hypertension) Current Visit: Yes Status: Chronic Qualifiers: Hypertension type: essential hypertension Qualified Code(s): I10 - Essential (primary) hypertension Plan to address problem: Cont antihypertensives (3) GERD (gastroesophageal reflux disease) Current Visit: Yes Status: Acute Continue PPIs Disposition: TO HOME OR SELFCARE Time spent for discharge: 32 minutes - Discharge Diagnoses (1) ACS (acute coronary syndrome) Status: Acute (2) HTN (hypertension) Status: Chronic Qualifiers: Hypertension type: essential hypertension Qualified Code(s): I10 - Essential (primary) hypertension (3) GERD (gastroesophageal reflux disease) Status: Acute (4) DVT prophylaxis Status: Acute Core Measure Documentation - Palliative Care Palliative Care/ Comfort Measures: Not Applicable - Core Measures Any of the following diagnoses?: none Exam - Constitutional Vitals: Temp Pulse Resp BP Pulse Ox 98.0 F 64 16 128/57 95 06/07/20 09:08 06/07/20 09:08 06/07/20 09:08 06/07/20 09:08 06/07/20 09:08 General appearance: Present: no acute distress, well-nourished - EENT Eyes: Present: PERRL ENT: hearing intact, clear oral mucosa - Neck Neck: Present: supple, normal ROM - Respiratory Respiratory effort: normal Respiratory: bilateral: CTA - Cardiovascular Heart rate: 78 Heart Sounds: Present: S1 & S2. Absent: rub, click - Extremities Extremities: pulses symmetrical, No edema Peripheral Pulses: within normal limits - Abdominal General gastrointestinal: Present: soft, non-tender, non-distended, normal bowel sounds Female genitourinary: Present: normal - Integumentary Integumentary: Present: clear, warm, dry - Musculoskeletal Musculoskeletal: gait normal, strength equal bilaterally - Psychiatric Psychiatric: appropriate mood/affect, intact judgment & insight - Neurologic Neurologic: CNII-XII intact, moves all extremities Plan Activity: no restrictions Diet: low fat, low cholesterol, low salt Follow up with: DONTA VARGAS [Other] - 3-5 Days
[2020-06-07 17:55] VITALS: BP 148/76
[2020-06-07] MEDS ORDERED: METOPROLOL TARTRATE 25 MG TAB PO SCH (22:00)
[2020-06-08] MEDS ORDERED: ASPIRIN 81 MG TAB CHEW PO SCH (10:00)
[2020-06-08] MEDS ORDERED: amLODIPine 5 MG TAB PO SCH (10:00)
--- NOTE | 2020-06-08 10:14 | Treadmill Report ---
CARDIAC NUCLEAR PERFUSION STUDY REASON FOR STUDY: Chest pain and palpitations. IMAGING PROTOCOL: Single isotope used documented as single isotope protocol. IMAGING RESULTS: Normal cavity size from stress to rest. Normal distribution of radionuclide in the anterior, inferior, septal, and apical regions. Gated SPECT, EF of 68% with no wall motion abnormality. The patient exercised on Baljit protocol for 7 minutes, had no EKG changes or arrhythmia suggestive of ischemia. The patient achieved 90% of max predicted heart rate. Peak blood pressure was 170/100. SUMMARY: 1. Negative treadmill nuclear perfusion scan. 2. Normal myocardial perfusion. No significant ischemia. 3. Normal LV function. 4. Fair exercise capacity, 7 minutes Baljit protocol, no exaggerated BP response to exercise, no EKG changes or arrhythmia suggestive of ischemia. JOB# [id number] RADHA/EVERETT
== END 2020-06-07 18:13 | disposition home or self-care (01) ==
LOC: ED 08:23 → 4A 11:42
PROVIDERS: ADMIT Internal Medicine; ATTEND Internal Medicine
DX: R07.89 Other chest pain (principal); I10 Essential (primary) hypertension; K21.9 Gastro-esophageal reflux disease without esophagitis; I49.9 Cardiac arrhythmia, unspecified; I24.9 Acute ischemic heart disease, unspecified; K80.80 Other cholelithiasis without obstruction; Z98.890 Other specified postprocedural states; Z87.891 Personal history of nicotine dependence; Z79.82 Long term (current) use of aspirin; Z79.899 Other long term (current) drug therapy
CPT/HCPCS: 36415; 71046; 78452; 80048; 80053; 80307; 82550; 82553; 84443; 84484; 85025; 85379; 93005; 93017; 96360; 99285; 99406; A9270; A9502; G0378; J7030; 85007